=== PATIENT | male | born 1960 | race Two or more races ===

== ENCOUNTER → 2018-10-24 | Outpatient (CLI) | payer OTHER, MEDICARE ==
[2013-06-05 13:20] VITALS: BP 117/56
[~2018-10-24] MED LIST: HYDR-2761 PO; IBUP-1060 PO; PANT40TA5 PO; PROC5TAB14 PO; TRAM50TA PO
--- NOTE | 2018-10-24 17:31 | RAD ---
Chest, 2 views, 10/24/2018: HISTORY: Multiple myeloma, productive cough The heart size is normal. There are mild streaky left basilar opacities compatible with atelectasis or scarring. The lungs are otherwise clear. There is no evidence of pleural fluid. Numerous lower thoracic and upper lumbar vertebral compression fractures have developed since 05/29/2013. There is vertebroplasty change at several of these levels. There are scattered spurs in the spine. IMPRESSION: 1. Mild streaky left basilar atelectasis and/or scarring. 2. Multiple thoracic lumbar vertebral compression fractures, some of which demonstrate vertebroplasty change. Electronically signed by: Blayne Santiago MD (10/24/2018 5:28 PM) [facility]
== END | disposition home or self-care (01) ==
LOC: RAD 12:25
PROVIDERS: ATTEND Nurse Practitioner Adult Health
DX: C90.00 Multiple myeloma not having achieved remission (principal); R05 Cough
CPT/HCPCS: 71046

== ENCOUNTER → 2019-02-16 | Outpatient (CLI) | payer MEDICARE, OTHER ==
[2013-06-05 13:20] VITALS: BP 117/56
[~2019-02-16] MED LIST changes: -PANT40TA5 PO; +PANT40TA77 PO
--- NOTE | 2019-02-16 16:01 | RAD ---
EXAM: Chest, 2 views. HISTORY: Cough. COMPARISON: 10/24/2018 FINDINGS: 2 views of the chest are obtained. There is suspected right perihilar interstitial infiltrate and left basilar linear atelectasis or scarring. There is no pleural effusion or pneumothorax. The heart is stable in size. There are multiple thoracic and lumbar compression fractures with vertebroplasty changes. IMPRESSION: 1. Suspected right perihilar interstitial infiltrate. 2. Left basilar linear atelectasis or scarring. Electronically signed by: Lisset Gonzalez MD (02/16/2019 3:58 PM) [place] [id number]
== END | disposition home or self-care (01) ==
LOC: RAD 10:08
PROVIDERS: ATTEND Nurse Practitioner Adult Health
DX: R05 Cough (principal); M48.55XA Collapsed vertebra, not elsewhere classified, thoracolumbar region, initial encounter for fracture
CPT/HCPCS: 71046